=== PATIENT | male | born 1965 | race American Indian/Alaskan Native ===

== ENCOUNTER 2020-02-01 16:08 | Emergency (ER) | payer OTHER ==
[~2020-02-01] VITALS: Ht 165.1 cm; Wt 86.6 kg
[~2020-02-01 16:08] MED LIST: FEXOFENADINE HC60 MG PO; IBUPROFEN800 MG PO; LORADAMED10 MG PO; NORCO 5-325 TA1 EACH PO; ULTRAM50 MG PO; VALIUM5 MG PO
[2020-02-01] MEDS ORDERED: CEPHALEXIN500 MG PO (16:30)
[2020-02-01] MEDS ORDERED: PREDNISONE20 MG PO (16:31)
--- NOTE | 2020-02-02 13:44 | EKG ---
[facility] [address] [facility] [place] [address] Signed Normal sinus rhythm Normal ECG No previous ECGs available Confirmed by AURORA CALVO MD ([id number]) on 02/02/2020 1:44:34 PM Electronically Signed By: AURORA CALVO MD 02/02/20 1344 PATIENT NAME: DIANNE MCCLOUD Electrocardiogram DATE OF : 63 PHYSICIAN: AURORA CALVO MD REPORT #: [id number] REPORT IS CONFIDENTIAL AND NOT TO BE RELEASED WITHOUT AUTHORIZATION
== END 2020-02-01 19:35 | disposition home or self-care (01) ==
LOC: ED 16:08
DX: R25.2 Cramp and spasm (principal); E86.0 Dehydration; Z88.1 Allergy status to other antibiotic agents; Z79.52 Long term (current) use of systemic steroids
CPT/HCPCS: 71045; 80048; 84484; 85025; 93005; 93010; 96360; 96361; 99284-25; J7030

== ENCOUNTER 2020-10-26 06:30 | Day surgery (SDC) | payer OTHER ==
[~2020-10-26] VITALS: Ht 165.1 cm; Wt 91.0 kg
[~2020-10-26 06:30] MED LIST changes: +CEPHALEXIN500 MG PO; +DICLOFENAC SODI75 MG PO; +PREDNISONE20 MG PO
--- NOTE | 2020-10-26 08:10 | NUR ---
10/26/20 0810 Sylvia Perez 0806- PT ARRIVES TO PACU AWAKE AND TALKING. PT REPORTS NO PAIN OR NAUSEA. RESP EVEN AND UNLABORED. OXYGEN SAT HIGH 90'S TO 100% ON 6L VIA MASK. 0807- OXYGEN TITRATED OFF.
[2020-10-26] MEDS ORDERED: HYDROCODON-ACE1 EA10 PO (08:13)
--- NOTE | 2020-10-26 08:55 | OR ---
[facility] [address] [place], [place] [address] Signed DATE OF OPERATION: 10/26/2020 SURGEON: Landon Knight MD PREOPERATIVE DIAGNOSIS: Trigger fingers, right ring and long. POSTOPERATIVE DIAGNOSIS: Trigger fingers, right ring and long. PROCEDURE PERFORMED: Right trigger finger release of the long and ring. ANESTHESIA: [place] block. TOURNIQUET TIME: 20 minutes. BRIEF HISTORY: Dianne is a 55-year-old gentleman with pain in his hand with locking of the fingers. Risks and benefits of release were discussed with him. He elected to proceed. DESCRIPTION OF PROCEDURE: Once consent was obtained, he was taken to the operating room. After adequate anesthesia, he was placed on the operating room table, all downside pressure points were well padded. The arm was prepped and draped after establishment of Doyle block. The ring finger was approached first through a 1 cm incision, carried through skin and subcutaneous tissue. The subcutaneous dissection was taken down to the flexor tendon. It was dissected free of overlying soft tissue and under direct loupe magnification, the A1 bobbi was identified and released. The middle finger was approached through a 2nd incision and a similar procedure performed. The patient was then asked to move his hand and he could fully flex and fully extend without any locking or triggering. The wounds were both copiously irrigated with antibiotic solution, closed with 3-0 nylon and dressed with Adaptic, gauze pad and roll gauze. He tolerated the procedure well. All sponge, needle, and instrument counts were correct. Electronically Signed By: LANDON KNIGHT MD 10/26/20 0855 PATIENT NAME: DIANNE MCCLOUD OPERATIVE REPORT DATE OF : 63 REPORT #: [id number] PHYSICIAN: LANDON KNIGHT MD PCP: CHON FREDERICK REPORT IS CONFIDENTIAL AND NOT TO BE RELEASED WITHOUT AUTHORIZATION [address] [address] Signed Landon Knight MD BA/MARTINL /[id number] Copies: ~ Electronically Signed By: LANDON KNIGHT MD 10/26/20 0855 PATIENT NAME: DIANNE MCCLOUD OPERATIVE REPORT DATE OF : 63 REPORT #: [id number] PHYSICIAN: LANDON KNIGHT MD PCP: CHON FREDERICK REPORT IS CONFIDENTIAL AND NOT TO BE RELEASED WITHOUT AUTHORIZATION
== END 2020-10-26 08:50 | disposition home or self-care (01) ==
LOC: DS 06:30
PROVIDERS: ATTEND Specialist
PROC: 0LN70ZZ Release Right Hand Tendon, Open Approach (ICD-10-PCS; 2020-10-26)
PROC: 0LN70ZZ Release Right Hand Tendon, Open Approach (ICD-10-PCS; principal; 2020-10-26 08:00)
DX: M65.331 Trigger finger, right middle finger (principal); M65.341 Trigger finger, right ring finger
CPT/HCPCS: 01810; J0690; J2001; J2405; J2704; J3010; J7121

== ENCOUNTER 2022-07-01 07:54 | Day surgery (SDC) | payer OTHER ==
[~2022-07-01] VITALS: Ht 342.9 cm; Wt 106.6 kg
[~2022-07-01 07:54] MED LIST changes: +ACETAMINOPHEN325 M1 PO; +ANTIFUNGAL113 GM; +CLOBETASOL PRO118 ML TOP; +FLUTICASONE PRO15 G1 TP; +HYDROCHLOROTH12.5 M1 PO; +HYDROCODON-ACE1 EA10 PO; +LISINOPRIL10 MG PO; +PROTOPIC100 G1; +SILDENAFIL20 MG PO; +TERBINAFINE HC250 MG PO; +TRIAMCINOLONE A15 G1 TOP
--- NOTE | 2022-07-01 11:10 | NUR ---
07/01/22 1110 Sadaf Tenorio 1001 PT ARRIVED IN PACU SLEEPY. ABD FIRM. ENCOURAGED TO PASS FLATUS. 1015 DR AT BEDSIDE. PT BACK TO SLEEP. 1030 RESTING. REU. [id number] UP TO BATHROOM. VOIDED AND SAT IN BATHROOM PASSING FLATUS. 1106 BACK AT BEDSIDE GETTING DRESSED. 1110 DC INSTRUCTIONS GIVEN.
--- NOTE | 2022-07-02 08:55 | OR ---
[facility] [address] [place], [place] [address] Signed DATE OF OPERATION: 07/01/2022 SURGEON: Marely Jerry MD PREOPERATIVE DIAGNOSES: 1. Prolapsing hemorrhoid at 5 o'clock position. 2. Brother with either colon cancer or colon polyps in his 50s. POSTOPERATIVE DIAGNOSES: 1. 5 mm polyp at 16 cm (rectum). 2. 5 mm polyp at hepatic flexure. 3. 4 mm polyp at 30 cm (sigmoid colon). 4. 3 mm polyp at 16 cm (rectum). 5. Moderate internal hemorrhoids. ESTIMATED BLOOD LOSS: None. INDICATIONS: Dianne is a 57-year-old gentleman, asked to see me for a colonoscopy. He describes in office sigmoidoscopy without sedation back in his 40s. He said it was quite uncomfortable and quite miserable. He cannot recall while it was done. More recently, he went to his primary care provider and apparently had a prolapsing hemorrhoid at the 5 o'clock position. Apparently the primary care provider pushed it back inside. He was asked to see me with respect to the above. He told me he has never had a full colonoscopy. He is not sure if his brother had colonic polyps and/or colon cancer. He said his brother had multiple medical issues and finally . Dianne really has no lower GI complaints other than the recent hemorrhoid. His had come with him to the office. In the office, I gave him a brochure on colonoscopy. We had reviewed the nature of the test. There is risk including, but not limited to gas bloating, crampy abdominal pain, bleeding, perforation requiring surgery, and missed diagnosis. We also reviewed the need for IV conscious sedation. He had expressed understanding and wished to proceed. PROCEDURE NOTE: Dianne was taken into our endoscopy suite and placed in the left lateral decubitus position. He was given IV sedation with 8 mg of Versed and 200 mcg of fentanyl. A digital rectal exam was performed. He has excellent sphincter tone. Very little in the way of external hemorrhoids. I could not prolapse the hemorrhoid. I do not feel any masses. The adult colonoscope had been introduced and advanced under direct Electronically Signed By: MARELY JERRY MD 07/02/22 0855 PATIENT NAME: DIANNE MCCLOUD OPERATIVE REPORT DATE OF : 63 REPORT #: [id number] PHYSICIAN: MARELY JERRY MD PCP: PANCHO GARNICA MD REPORT IS CONFIDENTIAL AND NOT TO BE RELEASED WITHOUT AUTHORIZATION [facility] [address] [place], [place] [address] Signed visualization of the camera. He required extra sedation and abdominal compression in order to advance the scope. He was a little bit awake and moaning. If he would have recall of the procedure, he would probably be much better served with monitored anesthesia care and propofol infusion. We then made it around to the cecum. His prep was good. We could easily see the appendiceal orifice and ileocecal valve. The scope was then slowly withdrawn. We took pictures throughout for photodocumentation. The above-mentioned polyps were easily removed with the help of hot biopsy forceps. We did see just a few diverticula in the sigmoid colon. They were small in size, few in number, and scattered about. Once in the rectum, the scope had been retroflexed and he has minimal to moderate sized internal hemorrhoid columns. After this, the gas was suctioned out and the colonoscope removed. Dianne tolerated the procedure well. RECOMMENDATIONS: Dianne will return to my office in 7 to 14 days to review his results. He may need monitored anesthesia care with propofol in the future if he has recall of this test. It looks like his hemorrhoid has settled down. Marely Jerry MD ALB/MODL /[id number] cc: Marely Jerry MD [facility] Copies: MARELY JERRY MD ~ Electronically Signed By: MARELY JERRY MD 07/02/22 0855 PATIENT NAME: DIANNE MCCLOUD OPERATIVE REPORT DATE OF : 63 REPORT #: [id number] PHYSICIAN: MARELY JERRY MD PCP: PANCHO GARNICA MD REPORT IS CONFIDENTIAL AND NOT TO BE RELEASED WITHOUT AUTHORIZATION
--- NOTE | 2022-07-03 13:48 | PATH ---
[facility] [address] [facility] [place], [place] [address] Signed SPECIMEN(S): A COLON POLYP AT 16 CM SPECIMEN(S): B HEPATIC FLEXURE POLYP SPECIMEN(S): C COLON POLYP AT 30 CM SPECIMEN(S): D RECTAL POLYP AT 15 CM SPECIMEN SOURCE: A. COLON POLYP AT 16 CM B. HEPATIC FLEXURE POLYP C. COLON POLYP AT 30 CM D. RECTAL POLYP AT 15 CM CLINICAL HISTORY: Screening. Internal hemorrhoids, diverticulosis, polyps x 4. FINAL PATHOLOGIC DIAGNOSIS: A. Colon polyp at 16 cm, polypectomy: - Fragments of tubular adenoma. - Negative for high-grade dysplasia and malignancy. B. Hepatic flexure polyp, polypectomy: - Fragments of tubular adenoma. - Negative for high-grade dysplasia and malignancy. C. Colon polyp at 30 cm, polypectomy: - Tubular adenoma. - Negative for high-grade dysplasia and malignancy. D. Rectal polyp at 15 cm, polypectomy: - Hyperplastic polyp. DF:cml:C2NR MICROSCOPIC EXAMINATION: Histologic sections of all submitted blocks are examined by light microscopy. These findings, together with the gross examination, support the pathologic diagnosis. GROSS DESCRIPTION: A. The specimen, labeled and designated "Tsosie, colon polyp at 16 cm," is received in formalin and consists of three mendoza soft tissue fragments, ranging from 0.1-0.2 cm. Entirely submitted in (A1). B. The specimen, labeled and designated "Tsosie, hepatic flexure polyp," is received in formalin and consists of four mendoza soft tissue fragments, ranging from 0.1-0.2 cm. Entirely submitted in (B1). C. The specimen, labeled and designated "Tsosie, colon polyp at 30 cm," is PATIENT NAME: DIANNE MCCLOUD PATHOLOGY DATE OF : 63 REPORT #: [id number] PHYSICIAN: [facility] PCP: PANCHO GARNICA MD REPORT IS CONFIDENTIAL AND NOT TO BE RELEASED WITHOUT AUTHORIZATION [facility] [address] [facility] [place] [address] Signed received in formalin and consists of one mendoza soft tissue fragment, 0.1 cm. Entirely submitted in (C1). D. The specimen, labeled and designated "Laurie, rectal polyp at 15 cm," is received in formalin and consists of one mendoza soft tissue fragment, 0.1 cm. Entirely submitted in (D1). JS (under the direct supervision of a pathologist) The Gross Description was prepared using a voice recognition system. The report was reviewed for accuracy; however, sound-alike word errors, addition and/or deletions may occur. If there is any question about this report, please contact Client Services. PERFORMING LABORATORY: The technical component was performed by [email or web address], [address] [place] [address] (CLIA# [id number]). Professional interpretation was performed by [email or web address], [facility], [place], [address] [place] [id number] (CLIA#: [id number]) Diagnostician: Clay Chou DO Pathologist Electronically Signed 07/03/2022 Copies: ~ PATIENT NAME: DIANNE MCCLOUD PATHOLOGY DATE OF : 63 REPORT #: [id number] PHYSICIAN: [facility] PCP: PANCHO GARNICA MD REPORT IS CONFIDENTIAL AND NOT TO BE RELEASED WITHOUT AUTHORIZATION
== END 2022-07-01 11:15 | disposition home or self-care (01) ==
LOC: DS 07:54
PROVIDERS: ATTEND Colon & Rectal Surgery
PROC: 0DBL8ZZ Excision of Transverse Colon, Via Natural or Artificial Opening Endoscopic (ICD-10-PCS; 2022-07-01)
PROC: 0DBN8ZZ Excision of Sigmoid Colon, Via Natural or Artificial Opening Endoscopic (ICD-10-PCS; 2022-07-01)
PROC: 0DBP8ZZ Excision of Rectum, Via Natural or Artificial Opening Endoscopic (ICD-10-PCS; principal; 2022-07-01 09:30)
DX: Z12.11 Encounter for screening for malignant neoplasm of colon (principal); K62.1 Rectal polyp; K64.8 Other hemorrhoids; K57.30 Diverticulosis of large intestine without perforation or abscess without bleeding; Z88.1 Allergy status to other antibiotic agents; Z88.8 Allergy status to other drugs, medicaments and biological substances; Z80.0 Family history of malignant neoplasm of digestive organs; Z83.71 Family history of colonic polyps; I10 Essential (primary) hypertension; M19.90 Unspecified osteoarthritis, unspecified site; K64.4 Residual hemorrhoidal skin tags; D12.3 Benign neoplasm of transverse colon
CPT/HCPCS: 99153; G0500; J2250; J3010

== ENCOUNTER 2023-02-16 12:10 | Emergency (ER) | payer OTHER ==
[~2023-02-16] VITALS: Ht 342.9 cm; Wt 100.1 kg
[2023-02-16] MEDS ORDERED: ATORVASTATIN CA20 MG PO (12:27)
[2023-02-16 14:11] LABS: BASOPHILS 0.7 % (0-2); EOSINOPHILS 0.6 % (0-6); HEMATOCRIT 49.6 % (35.0-50.0); HEMOGLOBIN 16.5 g/dL (12.0-18.0); MCH 29.8 (27-36); MCHC 33.2 g/dl (30-36); MCV 89.5 fl (81-99); MONOCYTES 10.5 % (0-12); NEUTROPHILS 71.2 % (39-80); PLATELET COUNT 148 K/uL (140-440); RBC 5.54 M/ul (4.3-5.7); RDW 15.1 (10.5-15.0)
[2023-02-16 14:23] LABS: ANION GAP 12.7 (7-21); BUN/CREATININE RATIO 8.57 (6.0-28.6); CALCIUM 8.7 mg/dL (8.5-10.1); CREATININE, SERUM 1.05 mg/dL (0.70-1.30); POTASSIUM 3.7 mmol/L (3.5-5.1)
[2023-02-16] MEDS ORDERED: PAXLOVID 300-11 EACH PO (14:45)
[2023-02-16 15:02] VITALS: BP 165/108
== END 2023-02-16 15:02 | disposition home or self-care (01) ==
LOC: ED 12:10
PROVIDERS: Emergency Medicine
DX: U07.1 COVID-19 (principal); I10 Essential (primary) hypertension; Z88.1 Allergy status to other antibiotic agents; Z79.899 Other long term (current) drug therapy
CPT/HCPCS: 36415; 80048; 85025; 94640; 94664; 99283-25; A9270